=== PATIENT | male | born 1935 | race Caucasian/White ===

== ENCOUNTER 2017-09-28 07:42 | Outpatient (CLI) | payer MEDICARE, OTHER ==
[2017-09-28 08:47] LABS: BASOPHILS # (AUTO) 0.1 /CMM (0.0-0.2); EOSINOPHILS # (AUTO) 0.6 /CMM (0.0-0.7); EOSINOPHILS % (AUTO) 10.3 % (0.0-6.0); HEMATOCRIT 47 % (39-51); HEMOGLOBIN 15.5 g/dL (13.5-17.5); LYMPHOCYTES # (AUTO) 1.2 /CMM (0.8-4.8); LYMPHOCYTES % (AUTO) 20.2 % (20.0-44.0); MEAN CORPUSCULAR HEMOGLOBIN 32 PG (26.0-33.0); MEAN CORPUSCULAR HGB CONC 33 g/dl (31.0-36.0); MEAN CORPUSCULAR VOLUME 97 fL (80-96); MONOCYTES # (AUTO) 0.4 /CMM (0.1-1.30); MONOCYTES % (AUTO) 7.2 % (2.0-12.0); NEUTROPHILS # (AUTO) 3.6 /CMM (1.8-8.9); NEUTROPHILS % (AUTO) 61.3 % (43.0-81.0); PLATELET COUNT (AUTO) 274 /CMM (150-450); RDW COEFFICIENT OF VARIATION 14.5 (11.5-15.0); RED BLOOD CELL COUNT(AUTO) 4.86 MIL/uL (4.5-6.0); WHITE BLOOD COUNT (AUTO) 5.9 K/uL (4.3-11.0)
[2017-09-28 08:49] LABS: ALANINE AMINOTRANSFERASE 19 U/L (12-78); ALBUMIN 3.9 g/dL (3.4-5.0); ALKALINE PHOSPHATASE 64 U/L (46-116); ASPARTATE AMINOTRANSFERASE 23 U/L (15-37); BILIRUBIN,TOTAL 0.9 mg/dL (0.2-1.0); CALCIUM, SERUM 9.1 mg/dL (8.5-10.1); CARBON DIOXIDE 30 mmol/L (21-32); CHLORIDE 99 mmol/L (98-107); CREATININE 0.9 mg/dL (0.6-1.3); GLUCOSE 98 mg/dL (74-106); POTASSIUM 4.4 mmol/L (3.5-5.1); SODIUM SERUM 135 mmol/L (136-145); TOTAL PROTEIN, SERUM 7.8 g/dL (6.4-8.2); UREA NITROGEN, BLOOD 13 mg/dL (7-18)
[2017-09-28 09:01] LABS: CHOLESTEROL 180 mg/dL (<200); HDL CHOLESTEROL 105 mg/dL (40-60); LDL 76 mg/dL (0-99); THYROID STIMULATING HORMONE 2.114 uIU/mL (0.358-3.74); TRIGLYCERIDES 40 mg/dL (30-150)
== END 2017-09-28 23:59 | disposition home or self-care (01) ==
LOC: CT 07:42
PROVIDERS: ATTEND Internal Medicine Interventional Cardiology
DX: I71.4 Abdominal aortic aneurysm, without rupture (principal); I70.0 Atherosclerosis of aorta; J43.9 Emphysema, unspecified; I77.810 Thoracic aortic ectasia; I10 Essential (primary) hypertension; E11.9 Type 2 diabetes mellitus without complications; R53.83 Other fatigue; N20.0 Calculus of kidney; M47.894 Other spondylosis, thoracic region; M19.012 Primary osteoarthritis, left shoulder; M19.011 Primary osteoarthritis, right shoulder; M51.06 Intervertebral disc disorders with myelopathy, lumbar region
CPT/HCPCS: 36415; 71250-TC; 76770-TC; 80053-TC; 80061-TC; 84443-TC; 85025-TC

== ENCOUNTER 2018-01-04 11:31 | Outpatient (CLI) | payer MEDICARE, OTHER ==
[2018-01-04 12:30] LABS: BASOPHILS # (AUTO) 0.1 /CMM (0.0-0.2); BASOPHILS % (AUTO) 1.1 % (0.0-2.0); EOSINOPHILS # (AUTO) 0.5 /CMM (0.0-0.7); HEMATOCRIT 42 % (39-51); HEMOGLOBIN 14.1 g/dL (13.5-17.5); LYMPHOCYTES # (AUTO) 1.4 /CMM (0.8-4.8); MEAN CORPUSCULAR HEMOGLOBIN 32 PG (26.0-33.0); MEAN CORPUSCULAR HGB CONC 34 g/dl (31.0-36.0); MEAN CORPUSCULAR VOLUME 95 fL (80-96); MONOCYTES # (AUTO) 0.4 /CMM (0.1-1.30); MONOCYTES % (AUTO) 6.5 % (2.0-12.0); NEUTROPHILS # (AUTO) 4.2 /CMM (1.8-8.9); NEUTROPHILS % (AUTO) 63.4 % (43.0-81.0); PLATELET COUNT (AUTO) 265 /CMM (150-450); RDW COEFFICIENT OF VARIATION 14.4 (11.5-15.0); RED BLOOD CELL COUNT(AUTO) 4.41 MIL/uL (4.5-6.0); WHITE BLOOD COUNT (AUTO) 6.7 K/uL (4.3-11.0)
[2018-01-04 12:51] LABS: ALANINE AMINOTRANSFERASE 17 U/L (12-78); ALBUMIN 3.8 g/dL (3.4-5.0); ALKALINE PHOSPHATASE 65 U/L (46-116); ASPARTATE AMINOTRANSFERASE 18 U/L (15-37); CALCIUM, SERUM 8.8 mg/dL (8.5-10.1); CARBON DIOXIDE 30 mmol/L (21-32); CHLORIDE 99 mmol/L (98-107); CREATININE 0.9 mg/dL (0.6-1.3); GLUCOSE 90 mg/dL (74-106); SODIUM SERUM 137 mmol/L (136-145); TOTAL PROTEIN, SERUM 7.5 g/dL (6.4-8.2); UREA NITROGEN, BLOOD 17 mg/dL (7-18)
[2018-01-04 12:53] LABS: APPEARANCE,URINE CLEAR (CLEAR); BILIRUBIN,URINE NEGATIVE (NEGATIVE); BLOOD, URINE 2+ Ery/uL (NEGATIVE); COLOR,URINE YELLOW (YELLOW); KETONES,URINE TRACE (NEGATIVE); LEUKOCYTE ESTERASE ,URINE NEGATIVE (NEGATIVE); NITRITE, URINE NEGATIVE (NEGATIVE); PH,URINE 6.5 (5.0-8.0); PROTEIN,URINE NEGATIVE (NEGATIVE); UGLUCOSE NEGATIVE (NEGATIVE); UROBILINOGEN,URINE 0.2 EU/dL (0.2)
[2018-01-04 12:55] LABS: INR 1.01 (0.87-1.13)
[2018-01-04 13:26] LABS: BACTERIA,URINE None seen /HPF (None Seen); SQUAMOUS EPITHELIAL CELL,UR None Seen /HPF (None Seen); WBC,URINE 0-2 /HPF (0-3)
== END 2018-01-04 23:59 | disposition home or self-care (01) ==
LOC: LAB 11:31
PROVIDERS: ATTEND Family Medicine
DX: Z01.818 Encounter for other preprocedural examination (principal); I70.0 Atherosclerosis of aorta; M43.8X6 Other specified deforming dorsopathies, lumbar region; M47.894 Other spondylosis, thoracic region
CPT/HCPCS: 36415; 71046; 80053-TC; 81000-TC; 85025-TC; 85610-TC; 85730-TC

== ENCOUNTER 2018-06-14 12:11 | Outpatient (CLI) | payer MEDICARE, OTHER | END 2018-06-14 23:59 | disposition home or self-care (01) | LOC: CT 12:11 | PROVIDERS: ATTEND Internal Medicine Pulmonary Disease | DX: J43.2 Centrilobular emphysema (principal); R91.8 Other nonspecific abnormal finding of lung field; I25.10 Atherosclerotic heart disease of native coronary artery without angina pectoris; I70.0 Atherosclerosis of aorta; Z87.891 Personal history of nicotine dependence | CPT/HCPCS: 71250-TC ==

== ENCOUNTER 2018-10-22 08:28 | Outpatient (CLI) | payer MEDICARE, OTHER ==
[2018-10-22] MEDS ORDERED: REGADENOSON 0.4 MG/5 ML DISP.SYRIN IVP ONE (10:00)
== END 2018-10-22 23:59 | disposition home or self-care (01) ==
LOC: NM 08:28
PROVIDERS: ATTEND Internal Medicine Interventional Cardiology
DX: Z01.818 Encounter for other preprocedural examination (principal); I10 Essential (primary) hypertension; C34.90 Malignant neoplasm of unspecified part of unspecified bronchus or lung; R91.1 Solitary pulmonary nodule
CPT/HCPCS: 78452; A9502; J2785

== ENCOUNTER 2019-09-22 07:20 | Outpatient (CLI) | payer MEDICARE, OTHER ==
[2019-09-22] MEDS ORDERED: CT SWABBABLE VALVE TRANS SET 1 EA INFUS.SET MC ONE (09:07)
[2019-09-22] MEDS ORDERED: IV NS 0.9% 250 ML IV ONE (09:07)
[2019-09-22] MEDS ORDERED: IOHEXOL-350 100 ML VIAL IV ONE (09:07)
== END 2019-09-22 23:59 | disposition home or self-care (01) ==
LOC: CT 07:20
PROVIDERS: ATTEND Family Medicine
DX: I65.23 Occlusion and stenosis of bilateral carotid arteries (principal); I65.03 Occlusion and stenosis of bilateral vertebral arteries
CPT/HCPCS: 70498; J7050; Q9967

== ENCOUNTER 2019-12-28 09:24 | Outpatient (CLI) | payer MEDICARE, OTHER ==
[2019-12-28 10:45] LABS: CREATININE 1.2 mg/dL (0.6-1.3)
== END 2019-12-28 23:59 | disposition home or self-care (01) ==
LOC: LAB 09:24
PROVIDERS: ATTEND Family Medicine
DX: K59.09 Other constipation (principal)
CPT/HCPCS: 36415; 82565-TC; 84520-TC

== ENCOUNTER 2020-01-02 08:55 | Outpatient (CLI) | payer MEDICARE, OTHER ==
[2020-01-02] MEDS ORDERED: IOHEXOL-300 100 ML VIAL IV ONE (09:09)
[2020-01-02] MEDS ORDERED: CT SWABBABLE VALVE TRANS SET 1 EA INFUS.SET MC ONE (09:10)
[2020-01-02] MEDS ORDERED: IV NS 0.9% 250 ML IV ONE (09:10)
== END 2020-01-02 23:59 | disposition home or self-care (01) ==
LOC: CT 08:55
PROVIDERS: ATTEND Family Medicine
DX: N28.1 Cyst of kidney, acquired (principal); N20.0 Calculus of kidney; N32.89 Other specified disorders of bladder; I51.7 Cardiomegaly; I70.0 Atherosclerosis of aorta; I71.9 Aortic aneurysm of unspecified site, without rupture; M85.88 Other specified disorders of bone density and structure, other site; M51.37 Other intervertebral disc degeneration, lumbosacral region; G95.29 Other cord compression; Z95.818 Presence of other cardiac implants and grafts
CPT/HCPCS: 74177; J7050; Q9967

== ENCOUNTER 2021-10-16 12:10 | Outpatient (CLI) | payer MEDICARE, OTHER | END 2021-10-16 23:59 | disposition home or self-care (01) | LOC: MRI 12:10 | PROVIDERS: ATTEND Family Medicine | DX: S32.029A Unspecified fracture of second lumbar vertebra, initial encounter for closed fracture (principal); S32.039A Unspecified fracture of third lumbar vertebra, initial encounter for closed fracture; S32.049A Unspecified fracture of fourth lumbar vertebra, initial encounter for closed fracture; M47.816 Spondylosis without myelopathy or radiculopathy, lumbar region; M51.26 Other intervertebral disc displacement, lumbar region; M48.061 Spinal stenosis, lumbar region without neurogenic claudication; I71.4 Abdominal aortic aneurysm, without rupture; X58.XXXA Exposure to other specified factors, initial encounter; Y93.89 Activity, other specified; Y92.89 Other specified places as the place of occurrence of the external cause; Y99.8 Other external cause status | CPT/HCPCS: 72148-TC ==

== ENCOUNTER 2022-09-16 11:17 | Inpatient (IN) | payer MEDICARE, OTHER ==
[~2022-09-16] VITALS: Ht 165.1 cm; Wt 54.0 kg
--- NOTE | 2022-09-16 11:29 | NUR ---
Francis, sent by PMD for eval ct scan abnormal result, c/o headache since . AMBULATORY, PLACED ON BED, AAOX4, BREATHING EVEN AND UNLABORED SATURATING AT 98%.
[2022-09-16] MEDS ORDERED: METO25TA3 PO (11:34)
[2022-09-16] MEDS ORDERED: AMLO-212 PO (11:34)
[2022-09-16] MEDS ORDERED: CLOP75TA15 PO (11:34)
[2022-09-16] MEDS ORDERED: LOSA50TA39 PO (11:34)
[2022-09-16] MEDS ORDERED: EMPA10TA PO (11:34)
[2022-09-16] MEDS ORDERED: CLON0.1T PO (11:34)
[2022-09-16] MEDS ORDERED: ATOR10TA PO (11:34)
--- NOTE | 2022-09-16 11:45 | NUR ---
BLOOD DRAWN AND SENT TO LAB
--- NOTE | 2022-09-16 12:05 | NUR ---
SWAB FOR COVID19 SENT TO LAB
[2022-09-16 12:07] LABS: BASOPHILS % (AUTO) 0.9 % (0.0-2.0); EOSINOPHILS % (AUTO) 3.5 % (0.0-6.0); HEMATOCRIT 29 % (39-51); HEMOGLOBIN 9.1 g/dL (13.5-17.5); LYMPHOCYTES # (AUTO) 0.9 K/uL (0.8-4.8); MEAN CORPUSCULAR HGB CONC 31 g/dl (31.0-36.0); MEAN CORPUSCULAR VOLUME 73 fL (80-96); MONOCYTES # (AUTO) 0.4 K/uL (0.1-1.30); MONOCYTES % (AUTO) 7.9 % (2.0-12.0); NEUTROPHILS % (AUTO) 71.7 % (43.0-81.0); PLATELET COUNT (AUTO) 309 K/uL (150-450); RED BLOOD CELL COUNT(AUTO) 4.01 MIL/uL (4.5-6.0); WHITE BLOOD COUNT (AUTO) 5.6 K/uL (4.3-11.0)
[2022-09-16 12:11] LABS: CARBON DIOXIDE 27 mmol/L (21-32); CHLORIDE 96 mmol/L (98-107); CREATININE 1.1 mg/dL (0.6-1.3); GLUCOSE 115 mg/dL (74-106); POTASSIUM 4.2 mmol/L (3.5-5.1); SODIUM SERUM 131 mmol/L (136-145); UREA NITROGEN, BLOOD 21 mg/dL (7-18)
--- NOTE | 2022-09-16 12:30 | NUR ---
OTILIO CANTOR SUBMITTED.
--- NOTE | 2022-09-16 12:34 | NUR ---
DEVON [address] DR. HOFFMAN NOTEFED
[2022-09-16] MEDS ORDERED: Z GUARD REMEDY 4 OZ OINT TP PRN (15:30)
[2022-09-16] MEDS ORDERED: ZOLPIDEM TARTRATE 5 MG TABLET PO PRN (15:30)
[2022-09-16] MEDS ORDERED: MAGNESIUM HYDROXIDE 30 ML UDC PO PRN (15:30)
[2022-09-16] MEDS ORDERED: DEXTROSE 50%-WATER 50 ML DISP.SYRIN IV PRN (15:30)
[2022-09-16] MEDS ORDERED: ACETAMINOPHEN 325 MG TABLET PO PRN (15:30)
[2022-09-16] MEDS ORDERED: MAG HYDROX/AL HYDROX/SIMETH 30 ML UDC PO PRN (15:30)
[2022-09-16] MEDS ORDERED: ONDANSETRON HCL/PF 4 MG/2 ML VIAL IVP PRN (15:30)
[2022-09-16] MEDS ORDERED: HYDROCODONE/APAP 5/325MG TABLET PO PRN (15:30)
--- NOTE | 2022-09-16 16:36 | NUR ---
TEXTED DR. TURPIN FOR MRI APPROVAL.
[2022-09-16] MEDS: BLOOD SUGAR DIAGNOSTIC 1 EACH STRIP IN SCH ×2 (18:35→21:37)
--- NOTE | 2022-09-16 18:46 | NUR ---
REPORT GIVEN TO JANET RN ROOM 118-2 FOR CURRY
--- NOTE | 2022-09-16 20:00 | NUR ---
RN NOTE RECEIVED 87 Y/O M PT FROM ER, ACCOMPANIED BY 2 ER STAFF, PT ON RA TOLERATING WELL, NO SOB NOTED, NO ACUTE DISTRESS AT THIS TIME, IV ACCESS AT LAC #18G INTACT, PATENT, AND FLUSHING WELL, ADMISSION CARE RENDERED, SKIN IS INTACT, ORIENTED PT TO THE UNIT SAFTEY MEASURES IN PLACED; ALL DUE MEDS GIVEN, BED IN LOWEST AND LOCKED POSITION, BED ALARM ON, CALL LIGHT WITHIN REACH AND INSTRUCTED TO CALL FOR ASSISTANCE, WILL CONTINUE TO MONITOR THROUGHOUT THE SHIFT.
[2022-09-16] MEDS: ATORVASTATIN 10 MG TABLET PO SCH (21:37)
--- NOTE | 2022-09-16 22:00 | NUR ---
RN NOTE BS CHECKED AT 93 MG/DL, NO COVERAGE GIVEN. WILL CONT TO MONITOR.
[2022-09-17 07:16] LABS: BASOPHILS # (AUTO) 0.1 K/uL (0.0-0.2); BASOPHILS % (AUTO) 2.5 % (0.0-2.0); EOSINOPHILS % (AUTO) 11.6 % (0.0-6.0); HEMATOCRIT 30 % (39-51); HEMOGLOBIN 9.6 g/dL (13.5-17.5); LYMPHOCYTES % (AUTO) 21.6 % (20.0-44.0); MEAN CORPUSCULAR HGB CONC 32 g/dl (31.0-36.0); MEAN CORPUSCULAR VOLUME 73 fL (80-96); MONOCYTES # (AUTO) 0.5 K/uL (0.1-1.30); MONOCYTES % (AUTO) 10.8 % (2.0-12.0); NEUTROPHILS # (AUTO) 2.4 K/uL (1.8-8.9); NEUTROPHILS % (AUTO) 53.5 % (43.0-81.0); PLATELET COUNT (AUTO) 294 K/uL (150-450); RED BLOOD CELL COUNT(AUTO) 4.19 MIL/uL (4.5-6.0); WHITE BLOOD COUNT (AUTO) 4.4 K/uL (4.3-11.0)
[2022-09-17] MEDS: PANTOPRAZOLE 40 MG TABLET.DR PO SCH (07:29)
[2022-09-17] MEDS: BLOOD SUGAR DIAGNOSTIC 1 EACH STRIP IN SCH ×4 (07:30→21:45)
--- NOTE | 2022-09-17 07:33 | NUR ---
RN NOTE NO SIGNIFICANT CHANGES THROUGHOUT THE SHIFT, PT ON RA TOLERATING WELL, NO SOB NOTED, NO ACUTE DISTRESS AT THIS TIME, IV ACCESS AT LAC #18G INTACT, PATENT, AND FLUSHING WELL, ALL DUE MEDS GIVEN, SAFETY MEASURES IN PLACED; ALL DUE MEDS GIVEN, BED IN LOWEST AND LOCKED POSITION, BED ALARM ON, CALL LIGHT WITHIN REACH AND INSTRUCTED TO CALL FOR ASSISTANCE, WILL ENDORSE TO AM SHIFT NURSE FOR CONTINUITY OF CARE.
[2022-09-17] MEDS: INSULIN REGULAR, HUMAN 100 UNIT/ML 3 ML VIAL SQ PRN ×3 (07:34→21:46)
[2022-09-17 07:38] LABS: CALCIUM, SERUM 8.7 mg/dL (8.5-10.1); MAGNESIUM 2.2 mg/dL (1.8-2.4); PHOSPHORUS 3.5 mg/dL (2.5-4.9); POTASSIUM 4.2 mmol/L (3.5-5.1)
[2022-09-17] MEDS: METOPROLOL SUCCINATE 25 MG TAB.SR.24H PO SCH (08:06)
[2022-09-17] MEDS: CLOPIDOGREL BISULFATE 75 MG TABLET PO SCH (08:06)
[2022-09-17] MEDS: AMLODIPINE BESYLATE 5 MG TABLET PO SCH (08:07)
[2022-09-17] MEDS: LOSARTAN POTASSIUM 50 MG TABLET PO SCH (08:07)
[2022-09-17 10:12] VITALS: BP 145/72
[2022-09-17 12:00] VITALS: BP 152/66
--- NOTE | 2022-09-17 12:30 | NUR ---
Pt sent for MRI. MRI consent and checklist complete and in pt chart.
[2022-09-17] MEDS ORDERED: GADOTERATE MEGLUMINE 5 MMOL/10 ML VIAL IV ONE (14:46)
[2022-09-17 16:00] VITALS: BP 129/69
[2022-09-17] MEDS: ATORVASTATIN 10 MG TABLET PO SCH (17:01)
--- NOTE | 2022-09-17 19:20 | NUR ---
EMBEDDED PROCESSOR OPENING NOTE RECEIVED PT IN BED ASLEEP, EASILY AROUSABLE. A/O X4, ON RA, TOLERATING WELL, NO S/S OF ACUTE DISTRESS, TELE MONITOR READING SR, IV ACCESS LAC #18G S/L, INTACT AND PATENT. PT ABLE TO MAKE NEEDS KNOWN. PT AMB WITH ASSIST TO THE BATHROOM. ALL SAFETY MEASURES IN PLACE, BED IN LOWEST POSITION AND LOCKED. BED ALARM ON. SIDE RAILS UP X3, PLACE CALL LIGHT WITH IN REACH. WILL CONTINUE TO MONITOR.
[2022-09-17 20:00] VITALS: BP_SYST 138; BP_SYST 155; BP_DIAS 70; BP_DIAS 85
[2022-09-18] VITALS: BP 155/85
[2022-09-18 04:00] VITALS: BP 138/85
--- NOTE | 2022-09-18 06:53 | NUR ---
MILIEU MANAGER CLOSING NOTE PT IN BED ASLEEP, EASILY AROUSABLE. A/O X4, ON RA, TOLERATING WELL, NO S/S OF ACUTE DISTRESS, TELE MONITOR READING SR WITH HR 82, IV ACCESS LAC #18G S/L, INTACT AND PATENT. PT ABLE TO MAKE NEEDS KNOWN. PT AMB WITH ASSIST TO THE BATHROOM. ALL DUE MEDS GIVEN. ALL SAFETY MEASURES IN PLACE, BED IN LOWEST POSITION AND LOCKED. BED ALARM ON. SIDE RAILS UP X3, PLACE CALL LIGHT WITH IN REACH. WILL ENDORSE TO MORNING NURSE FOR CURRY.
[2022-09-18] MEDS: BLOOD SUGAR DIAGNOSTIC 1 EACH STRIP IN SCH ×2 (07:30→12:00)
[2022-09-18 08:00] VITALS: BP 120/62
[2022-09-18] MEDS: METOPROLOL SUCCINATE 25 MG TAB.SR.24H PO SCH (09:01)
[2022-09-18] MEDS: AMLODIPINE BESYLATE 5 MG TABLET PO SCH (09:02)
[2022-09-18] MEDS: CLOPIDOGREL BISULFATE 75 MG TABLET PO SCH (09:02)
[2022-09-18] MEDS: LOSARTAN POTASSIUM 50 MG TABLET PO SCH (09:03)
[2022-09-18] MEDS: PANTOPRAZOLE 40 MG TABLET.DR PO SCH (10:44)
[2022-09-18 12:00] VITALS: BP 120/62
--- NOTE | 2022-09-18 15:30 | NUR ---
RECEIVED THE PATIENT FROM THE OFF-GOING NURSE, PATIENT A/A X 4, DENIES PAIN/DISCOMFORT, OOB TOLERATED WITH SUPERVISION. PATIENT MEDICATED ASPER MD ORDERS, (SEE eMAR).PATIENT TOLERATED BREAKFAST AND LUNCH. PATIENT SEEN BY THE MD AND CLEARED FOR DISCHARGE,ANGIO-CATH REMOVED SITE WNL AND DRY PROTECTIVE/PRESSURE DRESSING IN PLACE. PATIENT'S NIECE PRESENT, DISCHARGE INSTRUCTION PROVIDED AND EDUCATION AND THE IMPORTANCE OF PCP FOLLOWUP PROVIDED AND BOTH VERBALIZED UNDERSTANDING. PATIENT STABLE LEFT AMBULATOR THE [facility] DEDICATED TRUCK DRIVER TO THE LOBBY.
== END 2022-09-18 15:39 | disposition home health service (06) | DRG 102 ==
LOC: ER 11:20 → TELE1 18:11
DX: G44.209 Tension-type headache, unspecified, not intractable (principal); I21.4 Non-ST elevation (NSTEMI) myocardial infarction; C34.90 Malignant neoplasm of unspecified part of unspecified bronchus or lung; E87.1 Hypo-osmolality and hyponatremia; E11.9 Type 2 diabetes mellitus without complications; Z20.822 Contact with and (suspected) exposure to COVID-19; I10 Essential (primary) hypertension; Z79.02 Long term (current) use of antithrombotics/antiplatelets; Z79.899 Other long term (current) drug therapy; E78.5 Hyperlipidemia, unspecified; Z86.73 Personal history of transient ischemic attack (TIA), and cerebral infarction without residual deficits
CPT/HCPCS: 36415; 70553-TC; 71045-TC; 80048-TC; 82962-TC; 83690-TC; 83735-TC; 84100-TC; 84484-TC; 85025-TC; 85730-TC; 87081-TC; 93307-TC; 97112-TC; 97116-TC; 97530-TC; A9575; C9803; G0378; J1815